=== PATIENT | male | born 1950 | race Caucasian/White ===

== ENCOUNTER → 2019-04-01 | Outpatient (CLI) | payer OTHER ==
[~2019-04-01] MED LIST: ATORVASTATIN PO; LEVOTHYROXINE PO; LISINOPRIL PO; METF500T17 PO
[2019-04-01 15:02] LABS: BASOPHILS # (AUTO) 0.05 x10^3/uL (0-0.1); BASOPHILS % (AUTO) 1 % (0-1); EOSINOPHILS # (AUTO) 0.19 x10^3/uL (0-0.4); EOSINOPHILS % (AUTO) 2 % (1-7); LYMPHOCYTES # (AUTO) 2.99 x10^3/uL (1-3.4); LYMPHOCYTES % (AUTO) 29 % (22-44); MD NO; MEAN CORPUSCULAR HEMOGLOBIN 30.3 pg (27.5-34.5); MEAN CORPUSCULAR HGB CONC 32.6 g/dL (33.2-36.2); MEAN CORPUSCULAR VOLUME 92.8 fL (81-97); MEAN PLATELET VOLUME 8.4 fL (7.4-10.4); MONOCYTES # (AUTO) 1.16 x10^3/uL (0.2-0.8); MONOCYTES % (AUTO) 11 % (2-9); NEUTROPHILS # (AUTO) 6.04 x10^3/uL (1.8-6.8); NEUTROPHILS % (AUTO) 58 % (42-75); PLATELET COUNT 221 x10^3/uL (130-400); RED BLOOD COUNT 5.58 x10^6/uL (4.38-5.82); RED CELL DISTRIBUTION WIDTH 14.8 % (9.4-14.8)
[2019-04-01 15:12] LABS: MICROSCOPIC NOT IND
[2019-04-01 15:14] LABS: ALBUMIN 4.1 g/dL (3.4-5.0); ANION GAP 6 mmol/L (5-15); CALCIUM 9.8 mg/dL (8.5-10.1); CHLORIDE 112 mmol/L (98-107)
[2019-04-01 15:19] LABS: ALANINE AMINOTRANSFERASE 51 U/L (12-78); ALKALINE PHOSPHATASE 76 U/L (45-117); BILIRUBIN,TOTAL 0.4 mg/dL (0.2-1.0); CREATININE 1.25 mg/dL (0.7-1.3); TOTAL PROTEIN 7.9 g/dL (6.4-8.2)
[2019-04-01 15:21] LABS: CULTURE INDICATED? NO
[2019-04-01 15:32] LABS: INTERNATIONAL NORMALIZED RATIO 0.93 (0.93-1.1); PROTHROMBIN TIME 9.9 Seconds (9.6-11.5)
== END | disposition home or self-care (01) ==
LOC: STAR 13:45
PROVIDERS: ATTEND Neurological Surgery
DX: Z01.810 Encounter for preprocedural cardiovascular examination (principal); R79.1 Abnormal coagulation profile; R94.31 Abnormal electrocardiogram [ECG] [EKG]; R82.90 Unspecified abnormal findings in urine; M47.816 Spondylosis without myelopathy or radiculopathy, lumbar region
CPT/HCPCS: 36415; 71046; 72110; 80053; 81003; 85025; 85610; 85730; 93005

== ENCOUNTER 2019-04-05 05:18 | Inpatient (IN) | payer OTHER ==
[~2019-04-05] VITALS: Ht 190.5 cm; Wt 124.1 kg
[2019-04-05 05:59] VITALS: BP 114/78
[2019-04-05] MEDS ORDERED: LACTATED RINGERS 1,000 ML IV SCH (06:03)
[2019-04-05] MEDS ORDERED: ALOGLIPTIN PO (06:06)
[2019-04-05] MEDS ORDERED: ATOR20TA37 PO (06:06)
[2019-04-05] MEDS ORDERED: LEVO175T5 PO (06:06)
[2019-04-05] MEDS ORDERED: LISI-167 PO (06:06)
[2019-04-05] MEDS ORDERED: BACITRACIN 50,000 UNIT ONE (06:16)
[2019-04-05] MEDS ORDERED: THROMBIN 5,000 UNIT VIAL TP ONE (06:16)
[2019-04-05] MEDS ORDERED: BUPIVACAINE/PF 0.5% ONE (06:16)
[2019-04-05] MEDS ORDERED: EPINEPHRINE 1 MG/ML, 1ML ONE (06:16)
[2019-04-05] MEDS ORDERED: REMIFENTANIL 2 MG ONE (06:45)
[2019-04-05] MEDS ORDERED: FENTANYL PF 250 MCG/5ML ONE (06:45)
[2019-04-05] MEDS ORDERED: MIDAZOLAM 1 MG/ML, 2ML ONE ×2 (06:45→12:41)
[2019-04-05] MEDS ORDERED: PROPOFOL 50 ML ONE ×3 (06:49→08:58)
[2019-04-05] MEDS ORDERED: PHENYLEPHRINE 10 MG/ML ONE (07:02)
[2019-04-05] MEDS ORDERED: DEXAMETHASONE 4 MG/ML, 1ML ONE (07:02)
[2019-04-05] MEDS ORDERED: SUCCINYLCHOLINE 20 MG/ML, 10ML ONE (07:02)
[2019-04-05] MEDS ORDERED: GLYCOPYRROLATE 0.2MG/1ML, 5ML ONE (07:02)
[2019-04-05] MEDS ORDERED: MEPERIDINE/PF 100 MG/ML ONE (08:55)
[2019-04-05] MEDS ORDERED: MEPERIDINE/PF 25MG/ML,1ML ONE (09:30)
[2019-04-05] MEDS ORDERED: FENTANYL PF 100 MCG/2ML ONE ×3 (09:30→12:38)
[2019-04-05] MEDS ORDERED: OXYcodone 5 MG/5 ML ORAL.SOL UDC ONE (09:31)
[2019-04-05] MEDS ORDERED: MAGNESIUM HYDROXIDE 8%, 30ML UDC PO PRN (10:00)
[2019-04-05] MEDS: CEFAZOLIN PMX 1GM/50ML 50 ML IVPB SCH ×2 (10:00→21:19)
[2019-04-05] MEDS ORDERED: ONDANSETRON 2MG/ML, 2ML IVPush PRN (10:00)
[2019-04-05] MEDS ORDERED: OXYcodone/APAP 5/325MG TABLET PO PRN (10:00)
[2019-04-05] MEDS ORDERED: INSULIN REGULAR 100 UNITS/ML, 3ML VIAL SQ-INSULIN PRN (10:00)
[2019-04-05] MEDS ORDERED: PHARMACY MAY ADJ FOR RENAL FX MC PRN (10:00)
[2019-04-05] MEDS ORDERED: hydrALAzine 20 MG/ML, 1ML IV PRN (10:00)
[2019-04-05] MEDS ORDERED: METHOCARBAMOL 750 MG TABLET PO PRN (10:00)
[2019-04-05] MEDS ORDERED: ACETAMINOPHEN 325 MG TABLET PO PRN (10:00)
[2019-04-05] MEDS ORDERED: DIPHENHYDRAMINE 50 MG/ML, 1ML IVPush PRN (10:00)
[2019-04-05] MEDS ORDERED: HYDROcodone/APAP 5/325 TABLET PO PRN (10:00)
[2019-04-05] MEDS ORDERED: PROMETHAZINE 25 MG/ML, 1ML IV PRN (10:00)
[2019-04-05] MEDS ORDERED: HYDROmorphone 1 MG/ML, 1ML INJ IVPush PRN (10:00)
[2019-04-05] MEDS ORDERED: PROMETHAZINE 25 MG/ML, 1ML IM PRN (10:00)
[2019-04-05] MEDS ORDERED: SENNA/DOCUSATE TABLET PO PRN (10:00)
[2019-04-05] MEDS ORDERED: MEPERIDINE/PF 25MG/ML,1ML IVPush PRN (10:00)
[2019-04-05] MEDS ORDERED: morphine SULFATE 10 MG/ML, 1ML IVPush PRN (10:00)
[2019-04-05] MEDS: OXYcodone 5 MG/5 ML ORAL.SOL UDC PO PRN ×2 (10:18→13:11)
[2019-04-05] MEDS: FENTANYL PF 100 MCG/2ML IV PRN ×7 (10:51→12:50)
[2019-04-05] MEDS ORDERED: METHOCARBAMOL 1,000 MG in DEXTROSE 5% 100 ML IV PRN (11:00)
[2019-04-05] MEDS ORDERED: CEFAZOLIN 1,000 MG IVPB ONE (12:30)
[2019-04-05] MEDS ORDERED: CEFAZOLIN 3,000 MG in SODIUM CHLORIDE 0.9% 100 ML IV ONE (13:00)
[2019-04-05] MEDS ORDERED: MIDAZOLAM 1 MG/ML, 2ML IVPush PRN (13:30)
[2019-04-05] MEDS ORDERED: HYDROmorphone 1 MG/ML, 1ML INJ ONE (13:41)
[2019-04-05] MEDS: CYCLOBENZAPRINE 10 MG TABLET PO PRN (14:32)
[2019-04-05] MEDS: NS + 20MEQ KCL 1,000 ML IV SCH ×2 (15:27→23:20)
[2019-04-05] MEDS: HYDROcodone/APAP 10/325 MG TABLET PO PRN ×3 (16:59→21:19)
[2019-04-05 20:40] VITALS: BP 105/69
[2019-04-05] MEDS ORDERED: ATORVASTATIN 20 MG TABLET PO SCH (21:00)
[2019-04-05] MEDS: metFORMIN 500 MG TABLET PO SCH (21:19)
[2019-04-05] MEDS: SODIUM CHLORIDE FLUSH 10ML SYR IVF SCH (21:20)
[2019-04-06 00:24] VITALS: BP 143/80
[2019-04-06] MEDS: CYCLOBENZAPRINE 10 MG TABLET PO PRN ×2 (00:56→10:34)
[2019-04-06] MEDS: HYDROcodone/APAP 10/325 MG TABLET PO PRN ×3 (01:22→12:31)
[2019-04-06] MEDS: CEFAZOLIN PMX 1GM/50ML 50 ML IVPB SCH (05:17)
[2019-04-06] MEDS ORDERED: LEVOTHYROXINE 175 MCG TABLET PO SCH (06:00)
[2019-04-06 08:02] VITALS: BP_SYST 159; BP_SYST 172; BP_DIAS 103; BP_DIAS 96
[2019-04-06] MEDS ORDERED: LISINOPRIL 10 MG TABLET PO SCH (09:00)
[2019-04-06] MEDS ORDERED: ALOGLIPTIN 25 MG HOMEMEDPO SCH (09:00)
[2019-04-06] MEDS ORDERED: HYDR-36 PO (09:30)
[2019-04-06] MEDS ORDERED: CYCL-259 PO (09:30)
[2019-04-06] MEDS ORDERED: CEPH-368 PO (09:32)
[2019-04-06] MEDS: metFORMIN 500 MG TABLET PO SCH (09:48)
[2019-04-06] MEDS: SODIUM CHLORIDE FLUSH 10ML SYR IVF SCH (09:49)
[2019-04-06 11:29] VITALS: BP 124/81
[2019-04-06] MEDS ORDERED: INSULIN LISPRO 100 UNITS/ML, PEN SQ-INSULIN SCH (12:30)
[2019-04-06] MEDS: NS + 20MEQ KCL 1,000 ML IV SCH (12:40)
[2019-04-06 12:55] VITALS: BP 150/89
== END 2019-04-06 16:00 | disposition home or self-care (01) | DRG 455 ==
LOC: ORIP 05:18 → 4NE 14:14 → DCLOUNGE 04-06 15:40
PROVIDERS: ADMIT Neurological Surgery; ATTEND Neurological Surgery
PROC: 0SG0071 Fusion of Lumbar Vertebral Joint with Autologous Tissue Substitute, Posterior Approach, Posterior Column, Open Approach (ICD-10-PCS; 2019-04-05)
PROC: 4A11X4G Monitoring of Peripheral Nervous Electrical Activity, Intraoperative, External Approach (ICD-10-PCS; 2019-04-05)
PROC: 0T7D7ZZ Dilation of Urethra, Via Natural or Artificial Opening (ICD-10-PCS; 2019-04-05)
PROC: 0SG00A0 Fusion of Lumbar Vertebral Joint with Interbody Fusion Device, Anterior Approach, Anterior Column, Open Approach (ICD-10-PCS; principal; 2019-04-05 07:00)
DX: M48.061 Spinal stenosis, lumbar region without neurogenic claudication (principal); E11.9 Type 2 diabetes mellitus without complications; I10 Essential (primary) hypertension; M25.78 Osteophyte, vertebrae; Z96.641 Presence of right artificial hip joint; M54.16 Radiculopathy, lumbar region; Z83.3 Family history of diabetes mellitus; Z87.891 Personal history of nicotine dependence; R33.9 Retention of urine, unspecified; N35.911 Unspecified urethral stricture, male, meatal
CPT/HCPCS: 72100; S0020; 72131; 82962; C1713; C1767; C1776; G0378; J0171; J0690; J1100; J1170; J2250; J2704; J3010; J3480; C1760; C1763; C1769; J0330; J1815; J2175; J2270; J2370; J7120